=== PATIENT | female | born 1990 | race Caucasian/White ===

== ENCOUNTER → 2016-07-20 | Outpatient (REF) | payer OTHER, BC | LOC: M SFHCWAGY 12:44 | PROVIDERS: ATTEND Nurse Practitioner Women's Health | DX: R30.0 Dysuria (principal); R35.0 Frequency of micturition ==

== ENCOUNTER → 2016-10-30 | Outpatient (REF) | payer OTHER ==
[2016-10-30 14:02] LABS: MEAN CORPUSCULAR HEMOGLOBIN 31.3 pg (27.0-33.0); MEAN CORPUSCULAR HGB CONC 34.6 g/dl (32.0-36.5); MEAN CORPUSCULAR VOLUME 90.3 fl (80.0-96.0); RED CELL DISTRIBUTION WIDTH 12.3 % (11.5-14.5); WHITE BLOOD COUNT 10.3 K/mm3 (4.0-10.0)
[2016-10-30 14:46] LABS: HCG, SERUM QUANTITATIVE 66558 MIU/ML
== END ==
LOC: M LAB REF 13:17
PROVIDERS: ATTEND Advanced Practice Midwife
DX: O36.80X0 Pregnancy with inconclusive fetal viability, not applicable or unspecified (principal)

== ENCOUNTER → 2017-03-02 | Outpatient (CLI) | payer OTHER ==
[2017-03-02 16:30] LABS: MEAN CORPUSCULAR HEMOGLOBIN 29.8 pg (27.0-33.0); MEAN CORPUSCULAR VOLUME 90.2 fl (80.0-96.0); PLATELET COUNT, AUTOMATED 251 10^3/uL (150-450); RED CELL DISTRIBUTION WIDTH 12.2 % (11.5-14.5); WHITE BLOOD COUNT 12.5 10^3/uL (4.0-10.0)
== END ==
LOC: M LAB 14:54
PROVIDERS: ATTEND Advanced Practice Midwife
DX: Z34.82 Encounter for supervision of other normal pregnancy, second trimester (principal); Z3A.00 Weeks of gestation of pregnancy not specified

== ENCOUNTER → 2017-05-13 | Outpatient (REF) | payer OTHER | LOC: M LAB REF 17:00 | DX: Z34.03 Encounter for supervision of normal first pregnancy, third trimester (principal); Z3A.36 36 weeks gestation of pregnancy | CPT/HCPCS: 87081 ==

== ENCOUNTER 2017-06-03 12:14 | Inpatient (IN) | payer OTHER ==
[2017-06-03] MEDS: PRENATAL VITAMINS CHEWABLE TABLET PO (09:00)
[2017-06-03] MEDS ORDERED: OXYTOCIN 30 UNITS IN 0.9% NaCl 500ML IV BAG (J2590) As Ordered (12:29)
[2017-06-03] MEDS: LACTATED RINGER'S 1000 ML IV (12:30)
[2017-06-03] MEDS ORDERED: LR 1,000 ML IV (12:30)
[2017-06-03 12:39] LABS: HEMATOCRIT 31.2 % (36.0-47.0); HEMOGLOBIN 9.6 g/dl (12.0-16.0); MEAN CORPUSCULAR HEMOGLOBIN 23.4 pg (27.0-33.0); MEAN CORPUSCULAR HGB CONC 30.8 g/dl (32.0-36.5); MEAN CORPUSCULAR VOLUME 76.1 fl (80.0-96.0); PLATELET COUNT, AUTOMATED 235 10^3/uL (150-450); RED CELL DISTRIBUTION WIDTH 15.4 % (11.5-14.5); WHITE BLOOD COUNT 15.3 10^3/uL (4.0-10.0)
[2017-06-03 13:02] LABS: CORD GAS ABE V -4.4; CORD GAS HCO3 V 21.2 MEQ/L; CORD GAS O2 SAT V 67.7 %; CORD GAS PCO2 V 40.7 mmHg; CORD GAS PH V 7.334 UNITS; CORD GAS PO2 V 28.5 mmHg; CORD GAS SBC V 20.2 MEQ/L; CORD GAS TCO2 V 22.4 MEQ/L
[2017-06-03 13:05] LABS: CORD GAS HCO3 A 23.8 MEQ/L; CORD GAS O2 SAT A 69.8 %; CORD GAS PCO2 A 54.8 mmHg; CORD GAS PH A 7.256 UNITS; CORD GAS PO2 A 30.1 mmHg; CORD GAS SBC A 20.6 MEQ/L; CORD GAS TCO2 A 25.5 MEQ/L
[2017-06-03] MEDS: OXYTOCIN DRIP 30 UNITS in APPROPRIATE DILUENT 1 EA IV (13:09)
[2017-06-03] MEDS ORDERED: ANUSOL HC CREAM 30GM TOP (13:15)
[2017-06-03] MEDS ORDERED: MOM 30ML SUSPENSION UDC PO (13:15)
[2017-06-03] MEDS ORDERED: METHYLERGONOVINE MALEATE 0.2 MG TAB PO (13:15)
[2017-06-03] MEDS: LIDOCAINE 1% MDV INJ 50 ML VIAL INFIL (13:15)
[2017-06-03] MEDS: IBUPROFEN 800 MG TAB PO ×2 (14:16→22:16)
[2017-06-03] MEDS: RHOGAM 300 MCG (1500 IU) INJ (J2790) IM (16:24)
[2017-06-03] MEDS: MEASLES,MUMPS,RUBELLA VACCINE INJ (MMR-II) (90707) SC (16:24)
[2017-06-03] MEDS: DIBUCAINE 1% OINTMENT 30GM TOP (20:21)
[2017-06-03] MEDS: ACETAMINOPHEN 500 MG TAB PO (20:21)
[2017-06-03] MEDS: DOCUSATE SODIUM 100 MG CAP PO (20:21)
[2017-06-04] MEDS: ACETAMINOPHEN 500 MG TAB PO ×2 (05:25→15:42)
[2017-06-04] MEDS: IBUPROFEN 800 MG TAB PO ×3 (05:25→21:53)
[2017-06-04] MEDS: DOCUSATE SODIUM 100 MG CAP PO ×2 (08:17→21:53)
[2017-06-04] MEDS: PRENATAL VITAMINS CHEWABLE TABLET PO (08:17)
[2017-06-05] MEDS: ACETAMINOPHEN 500 MG TAB PO ×2 (05:11→11:39)
[2017-06-05] MEDS: IBUPROFEN 800 MG TAB PO ×2 (06:01→13:32)
[2017-06-05] MEDS: PRENATAL VITAMINS CHEWABLE TABLET PO (11:38)
[2017-06-05] MEDS: DOCUSATE SODIUM 100 MG CAP PO (11:38)
== END 2017-06-05 14:25 | disposition home or self-care (01) | DRG 560 ==
LOC: M LDI 12:14 → M OBS 15:36
PROC: 10E0XZZ Delivery of Products of Conception, External Approach (ICD-10-PCS; principal; 2017-06-04)
PROC: 0KQM0ZZ Repair Perineum Muscle, Open Approach (ICD-10-PCS; 2017-06-04)
PROC: 10907ZC Drainage of Amniotic Fluid, Therapeutic from Products of Conception, Via Natural or Artificial Opening (ICD-10-PCS; 2017-06-04)
DX: O70.1 Second degree perineal laceration during delivery (principal); Z37.0 Single live birth; Z3A.39 39 weeks gestation of pregnancy

== ENCOUNTER → 2018-12-25 | Outpatient (REF) | payer OTHER ==
[~2018-12-25] MED LIST: IBUP-1114 PO; PRENTAB9 PO
[2018-12-25 21:36] LABS: APPEARANCE, URINE CLEAR (CLEAR); BACTERIA, URINE AUTO 1+ (NEGATIVE); BILIRUBIN, URINE AUTO NEGATIVE (NEGATIVE); BLOOD, URINE BLOOD NEGATIVE (NEGATIVE); COLOR, URINE YELLOW (YELLOW); GLUCOSE, URINE (UA) AUTO NEGATIVE (NEGATIVE); KETONE, URINE AUTO NEGATIVE (NEGATIVE); LEUKOCYTE ESTERASE, URINE AUTO NEGATIVE (NEGATIVE); NITRITE, URINE AUTO NEGATIVE (NEGATIVE); PROTEIN, URINE AUTO NEGATIVE (NEGATIVE); RBC, URINE AUTO 0 /HPF (0-3); SPECIFIC GRAVITY URINE AUTO 1.009 (1.002-1.035); SQUAMOUS EPITHELIAL CELL UR AU 1 /HPF (0-6); UROBILINOGEN, URINE AUTO 0.2 mg/dL (0.0-2.0); WBC, URINE AUTO 1 /HPF (0-3)
== END ==
LOC: M LAB REF 14:51
PROVIDERS: ATTEND Physician Assistant Medical
DX: N39.0 Urinary tract infection, site not specified (principal)

== ENCOUNTER → 2019-01-08 | Outpatient (REF) | payer OTHER | LOC: M LAB REF 09:15 | PROVIDERS: ATTEND Physician Assistant Medical | DX: R30.0 Dysuria (principal) ==

== ENCOUNTER → 2019-01-22 | Outpatient (REF) | payer OTHER ==
[2019-01-22 14:55] LABS: APPEARANCE, URINE CLEAR (CLEAR); BACTERIA, URINE AUTO 1+ (NEGATIVE); BILIRUBIN, URINE AUTO NEGATIVE (NEGATIVE); BLOOD, URINE BLOOD NEGATIVE (NEGATIVE); COLOR, URINE COLORLESS (YELLOW); GLUCOSE, URINE (UA) AUTO NEGATIVE (NEGATIVE); KETONE, URINE AUTO NEGATIVE (NEGATIVE); LEUKOCYTE ESTERASE, URINE AUTO NEGATIVE (NEGATIVE); NITRITE, URINE AUTO NEGATIVE (NEGATIVE); PROTEIN, URINE AUTO NEGATIVE (NEGATIVE); RBC, URINE AUTO 0 /HPF (0-3); SPECIFIC GRAVITY URINE AUTO 1.001 (1.002-1.035); SQUAMOUS EPITHELIAL CELL UR AU 2 /HPF (0-6); UROBILINOGEN, URINE AUTO 0.2 mg/dL (0.0-2.0); WBC, URINE AUTO 0 /HPF (0-3)
== END ==
LOC: M LAB REF 08:30
PROVIDERS: ATTEND Physician Assistant Medical
DX: N39.0 Urinary tract infection, site not specified (principal)

== ENCOUNTER 2019-12-19 18:01 | Emergency (ER) | payer OTHER ==
[~2019-12-19] VITALS: Ht 154.9 cm; Wt 52.5 kg
[2019-12-19 18:02] VITALS: BP 135/88
[2019-12-19] MEDS ORDERED: FLUORESCEIN OPHTH 1 MG STRIP OU ONE (18:45)
[2019-12-19] MEDS ORDERED: TETRACAINE 0.5% OPHTH SOLN 4ML OU ONE (18:45)
[2019-12-19] MEDS ORDERED: CIPR0.3S6 OS (19:45)
[2019-12-19] MEDS ORDERED: BOOSTRIX/ADACEL VACCINE (DIPHTH/PERTUSS/ACELL/TETANUS) 0.5ML SYR IM ONE (19:45)
[2019-12-19] MEDS ORDERED: NORC1TAB7 PO (19:45)
[2019-12-19] MEDS ORDERED: NORCO, ANEXSIA 5/325MG TABLET (HYDROcodone/ACETAMINOPHEN) PO ONE (19:45)
[2019-12-19] MEDS ORDERED: CIPROFLOXACIN 0.3% OPHTH SOLN 2.5ML OS ONE (19:45)
== END 2019-12-19 20:21 | disposition home or self-care (01) ==
LOC: M ED 18:01
DX: S05.02XA Injury of conjunctiva and corneal abrasion without foreign body, left eye, initial encounter (principal); W50.0XXA Accidental hit or strike by another person, initial encounter; Y92.89 Other specified places as the place of occurrence of the external cause

== ENCOUNTER 2020-07-01 21:48 | Emergency (ER) | payer OTHER ==
[~2020-07-01] VITALS: Ht 154.9 cm; Wt 53.3 kg
[~2020-07-01 21:48] MED LIST changes: +CIPR0.3S6 OS; +NORC1TAB7 PO
[2020-07-01] MEDS ORDERED: ZOLO100T (21:57)
[2020-07-01] MEDS ORDERED: BUPR15TASR (21:57)
[2020-07-01] MEDS ORDERED: TRAZ-189 (21:57)
[2020-07-01] MEDS ORDERED: FLUORESCEIN OPHTH 1 MG STRIP OS ONE (22:20)
[2020-07-01] MEDS ORDERED: PROPARACAINE 0.5% OPHTH SOL 15ML OS ONE (22:20)
[2020-07-01] MEDS ORDERED: ACETAMINOPHEN 325 MG TAB PO ONE (23:15)
[2020-07-01] MEDS ORDERED: OFLOXACIN 0.3 % (OCUFLOX) OPTH SOL 5ML OS ONE (23:59)
[2020-07-01] MEDS ORDERED: KETO10TAB PO (23:59)
[2020-07-02] MEDS ORDERED: OFLO3OPSO OP
[2020-07-02 00:20] VITALS: BP 146/90
== END 2020-07-02 00:34 | disposition home or self-care (01) ==
LOC: M ED 21:48
DX: H11.422 Conjunctival edema, left eye (principal); Z79.899 Other long term (current) drug therapy

== ENCOUNTER → 2022-01-13 | Outpatient (CLI) | payer OTHER ==
[~2022-01-13] MED LIST changes: +BUPR15TASR; +KETO10TAB PO; +OFLO3OPSO OP; +TRAZ-189; +ZOLO100T
== END ==
LOC: M RAD 15:40
PROVIDERS: ATTEND Physician Assistant
DX: M54.9 Dorsalgia, unspecified (principal); Z87.440 Personal history of urinary (tract) infections

== ENCOUNTER → 2024-01-03 | Outpatient (CLI) | payer OTHER ==
[~2024-01-03] MED LIST changes: +CIPR0.3S37 OS; -CIPR0.3S6 OS; -OFLO3OPSO OP; +OFLO5DRO OP
== END ==
LOC: M WUC 13:50
PROVIDERS: ATTEND Registered Nurse
DX: R05.9 Cough, unspecified (principal)